=== PATIENT | male | born 1985 | race African-American/Black ===

== ENCOUNTER 2021-01-19 17:12 | Emergency (ER) | payer OTHER ==
[~2021-01-19] VITALS: Ht 177.8 cm; Wt 97.0 kg
[2021-01-19 17:27] VITALS: BP 127/95
--- NOTE | 2021-01-19 17:54 | RAD ---
Exam: Chest 2 views INDICATION: Cough TECHNIQUE: Frontal and lateral views the chest Comparisons: None FINDINGS: The cardiomediastinal silhouette and pulmonary vessels are within normal limits. The lung and pleural spaces are clear. IMPRESSION: No acute cardiopulmonary process. Electronically signed by: Isabelle Harrison MD (01/19/2021 5:51 PM) LISA
--- NOTE | 2021-01-19 18:44 | PHYS DOC ---
Past History Past Surgical History: No Surgical History (SHAKILA SCHOFIELD APRN) Alcohol Use: None (SHAKILA SCHOFIELD APRN) General Adult EDM: Chief Complaint: COUGH HPI: HPI: Patient is a 35-year-old male presents with cough for the last 8 weeks. Patient states the cough is continued to get worse and is worse at night. Denies shortness of breath, denies fever. Patient has been taking Mucinex D and was given an albuterol inhaler along with steroids. Patient states "I does feel like I'm choking and gagging and it's hard to sleep". (SHAKILA SCHOFIELD APRN) Review of Systems: Review of Systems: Constitutional: Denies fever or chills Eyes: Denies change in visual acuity HENT: Denies nasal congestion or sore throat Respiratory: Reports cough. Denies shortness of breath Cardiovascular: Denies chest pain or edema GI: Denies abdominal pain, nausea, vomiting, bloody stools or diarrhea : Denies dysuria Musculoskeletal: Denies back pain or joint pain Integument: Denies rash Neurologic: Denies headache, focal weakness or sensory changes Endocrine: Denies polyuria or polydipsia Lymphatic: Denies swollen glands Psychiatric: Denies depression or anxiety (SHAKILA SCHOFIELD APRN) Allergies: Allergies: Allergies Coded Allergies Type Severity Reaction Last Updated Verified No Known Drug Allergies 01/19/21 No (SHAKILA SCHOFIELD APRN) Physical Exam: PE: Constitutional: Well developed, well nourished, no acute distress, non-toxic appearance. [] HENT: Normocephalic, atraumatic, bilateral external ears normal, oropharynx moist, no oral exudates, nose normal. [] Eyes: PERRLA, EOMI, conjunctiva normal, no discharge. [] Neck: Normal range of motion, no tenderness, supple, no stridor. [] Cardiovascular:Heart rate regular rhythm, no murmur [] Lungs & Thorax: Bilateral breath sounds clear to auscultation [] Abdomen: Bowel sounds normal, soft, no tenderness, no masses, no pulsatile masses. [] Skin: Warm, dry, no erythema, no rash. [] Back: No tenderness, no CVA tenderness. [] Extremities: No tenderness, no cyanosis, no clubbing, ROM intact, no edema. [] Neurologic: Alert and oriented X 3, normal motor function, normal sensory function, no focal deficits noted. [] Psychologic: Affect normal, judgement normal, mood normal. [] (SHAKILA SCHOFIELD APRN) Current Patient Data: Vital Signs: Vital Signs Date Time Temp Pulse Resp B/P (MAP) Pulse Ox O2 Delivery O2 Flow Rate FiO2 01/19/21 17:27 98.6 88 18 127/95 95 Room Air (SHAKILA SCHOFIELD APRN) EKG: EKG: [] (SHAKILA SCHOFIELD APRN) Radiology/Procedures: Radiology/Procedures: []Exam: Chest 2 views INDICATION: Cough TECHNIQUE: Frontal and lateral views the chest Comparisons: None FINDINGS: The cardiomediastinal silhouette and pulmonary vessels are within normal limits. The lung and pleural spaces are clear. IMPRESSION: No acute cardiopulmonary process. Electronically signed by: Isabelle Harrison MD (01/19/2021 5:51 PM) [facility] (SHAKILA SCHOFIELD APRN) Heart Score: C/O Chest Pain: No Risk Factors: Risk Factors: DM, Current or recent (<one month) smoker, HTN, HLP, family history of CAD, obesity. Risk Scores: Score 0 - 3: 2.5% MACE over next 6 weeks - Discharge Home Score 4 - 6: 20.3% MACE over next 6 weeks - Admit for Clinical Observation Score 7 - 10: 72.7% MACE over next 6 weeks - Early Invasive Strategies (SHAKILA SCHOFIELD APRN) Course & Med Decision Making: Course & Med Decision Making Pertinent Labs and Imaging studies reviewed. (See chart for details) [] 35-year-old male presents with cough for the last 8 weeks. Patient states that his cough is worse at night. Patient was seen at urgent care and given albuterol and also prednisone but doesn't feel like it is helped. Chest x-ray was unremarkable. Instructed patient to continue with the steroids and albuterol. Patient should get Sudafed to help with the drainage. Sleep with pillows under his head to prop him up and help with drainage and choking. Patient okay with discharge plan. Patient has an appointment with his PCP on Friday. Hemodynamically stable upon disposition. Return to the emergency room for worsening symptoms or concerns. (SHAKILA SCHOFIELD APRN) Course & Med Decision Making Did not see or evaluate patient. Agree with [facility]'s work-up and disposition per note. (CHERYL LUND MD) Conrado Disclaimer: Conrado Disclaimer: This electronic medical record was generated, in whole or in part, using a voice recognition dictation system. (SHAKILA SCHOFIELD APRN) Departure Departure: Impression: Primary Impression: Cough Disposition: HOME / SELF CARE / HOMELESS Condition: STABLE Referrals: NON,STAFF (PCP) Patient Instructions: Cough, Adult, [id number] Additional Instructions: You were seen in the emergency room for a cough. Chest x-ray was negative. Continue taking steroids and using albuterol inhaler as needed. It is important increase your fluids and take Sudafed to help with drainage. It might help to sleep propped up on pillows to help with drainage. If symptoms worsen please return to the emergency room. Please keep your appointment you have scheduled on Friday with your PCP. EMERGENCY DEPARTMENT GENERAL DISCHARGE INSTRUCTIONS Thank you for coming to [facility] (ED) today and trusting us with you care. We trust that you had a positivie experience in our Emergency Department. If you wish to speak to the department management, you may call the director at [phone]. YOUR FOLLOW UP INSTRUCTIONS ARE FOLLOWS: 1. Do you have a private Doctor? If you do not have a private doctor, please ask for a resource list of physicians or clinics that may be able to assist you with follow up care. 2. The Emergency Physician has interpreted your x-rays. The X-Ray specialist will also review them. If there is a change in the findings, you will be notified in 48 hours when at all possible. 3. A lab test or culture has been done, your results will be reviewed and you will be notified if you need a change in treatment. ADDITIONAL INSTRUCTIONS AND INFORMATION: 1. Your care today has been supervised by a physician who is specially trained in emergency care. Many problems require more than one evaluation for a complete diagnosis and treatment. We recommend that you schedule your follow up appointment as recommended to ensure complete treatment of you illness or injury. If you are unable to obtain follow up care and continue to have a problem, or if your condition worsens, we recommend that you return to the ED. 2. We are not able to safely determine your condition over the phone nor are we able to give sound medical advice over the phone. For these safety reasons, if you call for medical advice we will ask you to come to the ED for further evaluation. 3. If you have any questions regarding these discharge instructions please call the ED at [phone]. SAFETY INFORMATION: In the interest of safety, wellness, and injury prevention; we encourage you to wear your sealbelt, if you smoke; quite smoking, and we encourage family to use a protective helmet for bicycling and other sporting events that present an increased risk for head injury. IF YOUR SYMPTOMS WORSEN OR NEW SYMPTOMS DEVELOP, OR YOU HAVE CONCERNS ABOUT YOUR CONDITION; OR IF YOUR CONDITION WORSENS WHILE YOU ARE WAITING FOR YOUR FOLLOW UP APPOINTMENT; EITHER CONTACT YOUR PRIMARY CARE DOCTOR, THE PHYSICIAN WHOSE NAME AND NUMBER YOU WERE GIVEN, OR RETURN TO THE ED IMMEDIATELY. SHAKILA SCHOFIELD APRN Jan 19, 2021 18:44 CHERYL LUND MD Jan 21, 2021 20:37
== END 2021-01-19 18:57 | disposition home or self-care (01) ==
LOC: ER 17:12
DX: R05 Cough (principal)
CPT/HCPCS: 71046; 99283

== ENCOUNTER 2021-06-07 08:06 | Emergency (ER) | payer OTHER ==
[~2021-06-07] VITALS: Ht 177.8 cm; Wt 97.0 kg
[2021-06-07 08:45] VITALS: BP 129/87
--- NOTE | 2021-06-07 09:02 | PHYS DOC ---
Past History Past Surgical History: No Surgical History Alcohol Use: None Adult General Chief Complaint Chief Complaint: SORE THROAT HPI HPI Patient is a 36-year-old male presenting for COVID. This is a known diagnosis, reports his started getting symptomatic 1 week prior and tested positive, patient started developing upper respiratory symptoms and got tested 2 days ago where he was notified he was positive. He has been at home taking Mucinex, ibuprofen and Tylenol for aches and pains but reports ongoing dry nonproductive cough has been bothersome for him. He is presenting for recommendations on symptom control. He is otherwise healthy with no known medical issues and takes no medications on a daily basis, he is fully vaccinated against COVID-19 Review of Systems Review of Systems Fourteen body systems of review of systems have been reviewed. See HPI for pertinent positives and negative responses, other jeong all other systems are negative, non-pertinent or non-contributory Allergies Allergies Allergies Coded Allergies Type Severity Reaction Last Updated Verified No Known Drug Allergies 01/19/21 No Physical Exam Physical Exam General: Appears well, non toxic, and comfortable Skin: Warm, dry. Normal for ethnicity. HEENT: Atraumatic. PERRLA. Rhinorrhea and congestion. Nasal turbinates boggy b/l. Moist mucous membranes. Uvula midline. Maintaining secretions. No phonation changes. Neck: Trachea midline. Normal ROM. No stridor. Respiratory: Normal WOB. CTAB w/o w/r/r. No tachypnea. Cardiovascular: Regular rate and rhythm. Normal peripheral perfusion. Abdomen: Soft. Non tender. No distension. Back: Normal ROM. Musculoskeletal: No swelling or deformity. Neuro: Alert and oriented x 4. MAEE. Lymph: No cervical LAD. Psych: Normal affect and mood. Current Patient Data Vital Signs Vital Signs Date Time Temp Pulse Resp B/P (MAP) Pulse Ox O2 Delivery O2 Flow Rate FiO2 06/07/21 08:45 99.0 96 18 129/87 (101) 97 Room Air EKG EKG [] Radiology/Procedures Radiology/Procedures [] Heart Score C/O Chest Pain: No Risk Factors: Risk Factors: DM, Current or recent (<one month) smoker, HTN, HLP, family his tory of CAD, obesity. Risk Scores: Risk Factors: DM, Current or recent (<one month) smoker, HTN, HLP, family history of CAD, obesity. Course & Med Decision Making Course & Med Decision Making ABCs unremarkable HPI and physical exam consistent with known COVID-19 infection. Patient presenting today with symptoms from ongoing postnasal drip Recommended discontinuation of Mucinex. Recommended ongoing Tylenol and ibuprofen for aches and pains with instructions to start antihistamine such as Zyrtec or equivalent and Flonase nasal spray or equivalent. Continued supportive care practices and self quarantine advised Conrado Disclaimer Conrado Disclaimer This electronic medical record was generated, in whole or in part, using a voice recognition dictation system. Departure Departure: Impression: Primary Impression: COVID-19 Disposition: HOME / SELF CARE / HOMELESS Condition: STABLE Referrals: JOVITA KEVIN (PCP) Additional Instructions: As discussed prior to ER departure, your vitals and physical exam are nonconce rning for any emergent or surgical issues. As disclosed, you are suffering from symptomatic postnasal drip. You should start a daily antihistamine such as Zyrtec, Claritin, Ally or other equivalent. You should also start a daily intranasal corticosteroid spray such as Flonase or equivalent. Honey and/or other irjh-zno-hruitve cough drops can be used for sore throat symptoms. Otherwise there is no indication for antibiotics or other medications at this time. Continued supportive care and self quarantine practices are advised until it is safe to leave quarantine precautions ADRIENNE HOFF DO Jun 07, 2021 09:02
== END 2021-06-07 09:22 | disposition home or self-care (01) ==
LOC: ER 08:06
DX: U07.1 COVID-19 (principal)
CPT/HCPCS: 99282